=== PATIENT | male | born 1990 | race Caucasian/White ===

== ENCOUNTER 2019-07-29 19:11 | Emergency (ER) | payer SELFPAY ==
[~2019-07-29] VITALS: Ht 190.5 cm; Wt 65.8 kg
[2019-07-29 19:20] VITALS: BP 125/80
--- NOTE | 2019-07-29 19:21 | NUR ---
TO LOBBY AWAITING BED IN ED
--- NOTE | 2019-07-29 22:15 | NUR ---
PT CALLED IN ER LOBBY NO ANSWER.
--- NOTE | 2019-07-29 22:27 | NUR ---
PATIENT LEFT WITHOUT BEING SEEN BY DR. SAMPSON. NO FURTHER CARE PROVIDED FOR PATIENT.
== END 2019-07-29 22:28 | disposition left against medical advice (07) ==
LOC: MED 19:11
DX: T14.8XXA Other injury of unspecified body region, initial encounter (principal); Z53.21 Procedure and treatment not carried out due to patient leaving prior to being seen by health care provider; W46.0XXA Contact with hypodermic needle, initial encounter; Y93.89 Activity, other specified; Y92.89 Other specified places as the place of occurrence of the external cause; Y99.0 Civilian activity done for income or pay

== ENCOUNTER 2021-01-30 01:19 | Emergency (ER) | payer SELFPAY ==
[~2021-01-30] VITALS: Ht 190.5 cm; Wt 70.8 kg
[2021-01-30 01:24] VITALS: BP 137/81
--- NOTE | 2021-01-30 01:25 | NUR ---
TO BED VIA WHEELCHAIR
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
--- NOTE | 2021-01-30 01:32 | NUR ---
Dr. Castellon examining patient.
[2021-01-30] MEDS ORDERED: HYDROmorphone PFS 2 MG/ML SYR IVP STA (01:40)
[2021-01-30] MEDS ORDERED: ONDANSETRON 4 MG/2 ML VIAL IVP STA (01:40)
[2021-01-30] MEDS ORDERED: PROPOFOL 200 MG/20 ML VIAL IV ONE ×2 (01:45→02:35)
[2021-01-30] MEDS ORDERED: NACL 0.9% 1,000 ML IV ONE (01:45)
[2021-01-30] MEDS: NACL 0.9% 1,000 ML IV ONE ×2 (02:34→04:04)
--- NOTE | 2021-01-30 02:48 | NUR ---
XRAY AT BEDSIDE.
--- NOTE | 2021-01-30 03:29 | NUR ---
Patient appears to be resting comfortably in bed. Vital Signs within normal limits. Respirations even and unlabored.
[2021-01-30] MEDS ORDERED: fentaNYL citrate 0.05 MG/ML VIAL IVP STA (03:35)
[2021-01-30] MEDS ORDERED: HYDR-5080 PO (03:42)
[2021-01-30] MEDS ORDERED: IBUP-1842 PO (03:42)
--- NOTE | 2021-01-30 04:10 | NUR ---
POSTERIOR LONG LEG AND SUGAR TONG SPLINT PLACED ON PT L LEG AND WRAPPED WITH MAURO WRAP. +CSM
--- NOTE | 2021-01-30 04:12 | NUR ---
SPLINT PLACED BY EMT. PATIENT TOLERATED WELL. CMS INTACT, CAP REFILL <3. PATIENT DENIES NUMBNESS AND TINGLING.
--- NOTE | 2021-01-30 04:42 | NUR ---
PT GIVEN INSTRUCTION ON PROPER USE OF CRUTCHES. CRUTCHES FITTED TO PT HEIGHT AND ARM LENGTH. PT DEMONSTRATED SAFE USE FOR APPROXIMATELY 40 FEET, PT STATED HE FELT COMFORTABLE WITH USE
--- NOTE | 2021-01-30 04:48 | NUR ---
IV removed, catheter intact and site benign. Applied folded 4x4 gauze and tape to stop bleeding.
--- NOTE | 2021-01-30 04:49 | NUR ---
WITH PERMISSION FROM PATIENT D/C PAPERWORK AND INSTRUCTIONS WERE REVIEWED PATIENT'S LAUREN. ALL QUESTIONS ANSWERED.
--- NOTE | 2021-01-30 04:49 | NUR ---
Patient is currently ambulatory with crutches, per patient request prefered to be transfered to [facility] via w/c. Positive gag reflex. Alert and oriented. VSS. Is not driving self for discharge out of facility. NADR to Fentanyl.
[2021-01-30 04:50] VITALS: BP 116/76
--- NOTE | 2021-01-30 04:50 | NUR ---
Patient discharged with v/s stable. Written and verbal after care instructions given and explained. Patient alert, oriented and verbalized understanding of instructions. Wheel Chair Assisted with to car. All questions addressed prior to discharge. ID band removed. Patient advised to follow up with PMD. Rx of Hydrocodone/Acetominophen, Ibuprofen given. Patient educated on indication of medication including possible reaction and side effects. Opportunity to ask questions provided and answered. Addendum: 01/30/21 at 0456 by [email or web address] *W/C assisted to lobby, and patient procedded with cruthches to vehicle.
== END 2021-01-30 04:50 | disposition home or self-care (01) ==
LOC: MED 01:19
DX: S82.842A Displaced bimalleolar fracture of left lower leg, initial encounter for closed fracture (principal); V19.9XXA Pedal cyclist (driver) (passenger) injured in unspecified traffic accident, initial encounter; Y93.89 Activity, other specified; Y92.89 Other specified places as the place of occurrence of the external cause; Y99.8 Other external cause status
CPT/HCPCS: 29515; 73590; 73610; 73630; 96361; 96374; 96375; 99284; J1170; J2405; J3010; J7030